=== PATIENT | male | born 1945 | race African-American/Black ===

== ENCOUNTER 2020-04-30 11:22 | Outpatient (CLI) | payer MEDICARE ==
[2020-04-30] MEDS ORDERED: OMNIPAQUE 350 MG/ML, 100ML BOTTLE ONE (13:15)
== END 2020-04-30 23:59 | disposition home or self-care (01) ==
LOC: RAD 11:22
PROVIDERS: ATTEND Internal Medicine
DX: Z51.11 Encounter for antineoplastic chemotherapy (principal); C61 Malignant neoplasm of prostate; G93.3 Postviral and related fatigue syndromes; C79.51 Secondary malignant neoplasm of bone; C79.82 Secondary malignant neoplasm of genital organs; M48.54XA Collapsed vertebra, not elsewhere classified, thoracic region, initial encounter for fracture
CPT/HCPCS: 71260; 74177; 78306; A9503; Q9967

== ENCOUNTER → 2020-06-01 | Outpatient (CLI) | payer MEDICARE ==
[~2020-06-01] MED LIST: ALPR0.5T7 PO; ASPI-496 PO; ISOS20TA3 PO; MORP60TA34 PO; NIFE20CA PO; OXYC-307 PO
== END | disposition home or self-care (01) ==
LOC: RAD 11:59
PROVIDERS: ATTEND Internal Medicine
DX: C61 Malignant neoplasm of prostate (principal); M79.605 Pain in left leg; M79.604 Pain in right leg
CPT/HCPCS: 93970

== ENCOUNTER 2020-06-18 07:34 | Outpatient (CLI) | payer MEDICARE | END 2020-06-18 23:59 | disposition home or self-care (01) | LOC: ROC 07:34 | PROVIDERS: ATTEND Radiology Radiation Oncology | DX: Z02.9 Encounter for administrative examinations, unspecified (principal) ==

== ENCOUNTER → 2020-08-06 | Outpatient (CLI) | payer MEDICARE ==
[~2020-08-06] MED LIST changes: +OMNIPAQUE 350 MG/ML, 100ML BOTTLE ONE
[2020-08-06 10:36] LABS: CREATININE 0.95 mg/dL (0.7-1.3)
== END | disposition home or self-care (01) ==
LOC: RAD 09:44
PROVIDERS: ATTEND Internal Medicine
DX: C61 Malignant neoplasm of prostate (principal); C79.51 Secondary malignant neoplasm of bone; I77.810 Thoracic aortic ectasia; M43.8X4 Other specified deforming dorsopathies, thoracic region; N62 Hypertrophy of breast; Z51.11 Encounter for antineoplastic chemotherapy; G93.3 Postviral and related fatigue syndromes
CPT/HCPCS: 36415; 71260; 74177; 78306; 82565; A9503; Q9967